=== PATIENT | female | born 1990 ===

== ENCOUNTER → 2020-07-11 | Outpatient (CLI) | payer OTHER | END | disposition home or self-care (01) | LOC: PRENATAL 12:05 | PROVIDERS: ATTEND Obstetrics & Gynecology Maternal & Fetal Medicine | DX: Z36.89 Encounter for other specified antenatal screening (principal); O36.80X1 Pregnancy with inconclusive fetal viability, fetus 1; Z3A.13 13 weeks gestation of pregnancy ==

== ENCOUNTER → 2020-09-05 | Outpatient (CLI) | payer OTHER | END | disposition home or self-care (01) | LOC: PRENATAL 08-29 08:00 | PROVIDERS: ATTEND Obstetrics & Gynecology Maternal & Fetal Medicine | DX: O35.0XX1 Maternal care for (suspected) central nervous system malformation in fetus, fetus 1 (principal); O35.3XX1 Maternal care for (suspected) damage to fetus from viral disease in mother, fetus 1; O98.512 Other viral diseases complicating pregnancy, second trimester; Z36.89 Encounter for other specified antenatal screening; Z3A.21 21 weeks gestation of pregnancy ==

== ENCOUNTER 2020-12-29 18:00 | Inpatient (IN) | payer OTHER ==
[~2020-12-29] VITALS: Ht 157.5 cm; Wt 3.2 kg
[2021-01-15] MEDS ORDERED: PRENATAL TABLE1 EAC1 PO (17:25)
[2021-01-15] MEDS ORDERED: CALCIUM500 M2 PO (17:25)
== END 2021-01-18 10:07 | disposition home or self-care (01) | DRG 788 ==
LOC: OB/GYN 01-15 17:14 → LDR 01-15 17:14 → O/R 01-15 22:13 → LDR 01-15 22:26 → O/R 01-15 22:58 → OB/GYN 01-15 23:46 → SURH 01-18 18:00
PROVIDERS: ADMIT Obstetrics & Gynecology; ATTEND Obstetrics & Gynecology
PROC: 4A1HXFZ Monitoring of Products of Conception, Cardiac Rhythm, External Approach (ICD-10-PCS; 2021-01-15)
PROC: 10D00Z1 Extraction of Products of Conception, Low, Open Approach (ICD-10-PCS; principal; 2021-01-15 21:00)
DX: O62.1 Secondary uterine inertia (principal); O65.9 Obstructed labor due to maternal pelvic abnormality, unspecified; Z3A.39 39 weeks gestation of pregnancy; Z37.0 Single live birth